=== PATIENT | female | born 1960 | race Caucasian/White ===

== ENCOUNTER 2017-01-27 09:43 | Outpatient (CLI) | payer OTHER ==
--- NOTE | 2017-02-12 10:31 | Mammography Report ---
DATE OF SERVICE: 01/27/2017 DIGITAL BILATERAL SCREENING MAMMOGRAM. CLINICAL INDICATION: A 56-year-old nulliparous patient for screening. COMPARISON: [facility], [place], dated 10/19/2015, 11/14/2014, . TECHNIQUE: Routine CC and MLO projections were obtained of the breasts. FINDINGS: The breasts demonstrate scattered fibroglandular densities bilaterally. There is a possible developing density in the left outer anterior subareolar breast. Further evaluation with spot compression views and possible ultrasound is recommended. Punctate, typically benign calcifications are present. No mammographically suspicious findings are appreciated in the right breast. IMPRESSION: Incomplete examination. RECOMMENDATIONS: Additional evaluation of the left breast as above. BIRADS category 0 - Incomplete. STANDARD QUALIFYING STATEMENTS 1. This examination was reviewed with the aid of Computed-Aided Detection (CAD) . 2. A negative or benign imaging report should not delay biopsy if clinically suspicious findings are present. Consider surgical consultation if warranted. More than 5% of cancers are not identified by imaging. 3. Dense breasts may obscure an underlying neoplasm. TD: 02/04/2017 18:39 FARHAT
== END 2017-01-27 09:44 | disposition home or self-care (01) ==
LOC: DI 09:43
PROVIDERS: ATTEND Family Medicine
DX: Z12.31 Encounter for screening mammogram for malignant neoplasm of breast (principal); R92.8 Other abnormal and inconclusive findings on diagnostic imaging of breast
CPT/HCPCS: 77067

== ENCOUNTER 2017-02-19 12:10 | Outpatient (CLI) | payer OTHER ==
--- NOTE | 2017-02-19 14:48 | Mammography Report ---
DATE OF SERVICE: 02/19/2017 DIGITAL DIAGNOSTIC LEFT MAMMOGRAM: 02/19/2017 CLINICAL INDICATION: Possible obscured nodule on screening exam. COMPARISON: 01/27/2017, 10/19/2015, 11/14/2014, 10/07/2013. TECHNIQUE: Left true lateral and spot compression views. FINDINGS: The left breast again demonstrates scattered fibroglandular densities. The questioned density in the left outer anterior breast dissipates on additional compression. No underlying mass lesion or architectural distortion is identified. IMPRESSION: NEGATIVE EXAMINATION. RECOMMENDATION: ROUTINE ANNUAL SCREENING UNLESS OTHERWISE CLINICALLY INDICATED. BIRADS CATEGORY 1 - NEGATIVE. STANDARD QUALIFYING STATEMENTS 1. This examination was reviewed with the aid of Computer-Aided Detection (CAD) . 2. A negative or benign imaging report should not delay biopsy if clinically suspicious findings are present. Consider surgical consultation if warranted. More than 5 % of cancers are not identified by imaging. 3. Dense breasts may obscure an underlying neoplasm. TD: 02/19/2017 15:20 FARHAT
== END 2017-02-19 12:11 | disposition home or self-care (01) ==
LOC: DI 12:10
PROVIDERS: ATTEND Family Medicine
DX: R92.8 Other abnormal and inconclusive findings on diagnostic imaging of breast (principal)

== ENCOUNTER 2017-05-05 09:39 | Outpatient (CLI) | payer OTHER | END 2017-05-05 09:40 | disposition home or self-care (01) | LOC: LAB 09:39 | PROVIDERS: ATTEND Family Medicine | DX: R30.0 Dysuria (principal) | CPT/HCPCS: 87086 ==

== ENCOUNTER 2017-05-15 18:02 | Emergency (ER) | payer OTHER ==
[2017-05-15] MEDS ORDERED: TETANUS/DIPHTHERIA/PERTUSSIS 0.5 ML SYRINGE IM ONE (18:58)
[2017-05-15] MEDS ORDERED: AMPICILLIN/SULBACTAM 3 GM in SODIUM CHLORIDE 0.9% MINIBAG 100 ML IV STA (18:58)
--- NOTE | 2017-05-15 18:59 | ED Physician Documentation ---
PD HPI UPPER EXT INJURY - Stated complaint Stated Complaint: CAT BITE - Chief complaint Chief Complaint: Wound - History obtained from History obtained from: Patient - History of Present Illness Location: Other (She was bitten by her own cat to the left hand last night and now has swelling of the hand and streaks up the forearm. No fevers. Tetanus is not completely clear, maybe 2007?) Review of Systems Constitutional: reports: Reviewed and negative Cardiac: reports: Reviewed and negative Respiratory: reports: Reviewed and negative PD PAST MEDICAL HISTORY - Present Medications Home Medications: Ambulatory Orders Medication Instructions Recorded Confirmed Amox/Clav 875/125 [Augmentin] 1 each PO Q12H #14 tablet 05/15/17 Aspirin Chewable [St Rob 05/15/17 Aspirin] Cholecalciferol (Vitamin D3) 05/15/17 [Vitamin D3] Echinacea Purpurea,Angustif Xt 05/15/17 [Echinacea Extract 125 mg Cap] - Allergies Allergies/Adverse Reactions: Allergies Allergy/AdvReac Type Severity Reaction Status Date / Time No Known Drug Allergies Allergy Verified 05/15/17 18:13 PD ED PE NORMAL - Vitals Vital signs reviewed: Yes - General General: Alert and oriented X 3, No acute distress - Extremities Extremities: Other (There are 2 infected puncture wounds on the left hand, one near the first metacarpal and one in the dorsal first webspace. There is a little bit of lymphangitic streaking near the antecubital fossa. She has good range of motion of the hand but with pain.) - Neuro Neuro: Alert and oriented X 3, Normal speech Results - Vitals Vitals: Vital Signs - 24 hr 05/15/17 05/15/17 18:09 19:49 Temperature 36.8 C 37.0 C Heart Rate 90 83 Respiratory 15 12 Rate Blood Pressure 133/78 H 112/60 O2 Saturation 99 100 Oxygen O2 Source Room air - Labs Labs: Microbiology 05/15/17 19:15 Wound Culture - Preliminary Hand - Left PD MEDICAL DECISION MAKING - ED course ED course: 57-year-old woman with a hand infection from a cat bite, was expressed and cultured during examination. She was administered IV Unasyn and close follow- up precautions. Departure - Departure Disposition: 01 Home, Self Care Clinical Impression: Animal bite with open wound Condition: Good Record reviewed to determine appropriate education?: Yes Instructions: ED Bite Animal General Prescriptions: Amox/Clav 875/125 [Augmentin] 1 each PO Q12H #14 tablet Comments: Return tomorrow if not improving or anytime if worsening or if running a fever. Recheck with your doctor Friday if better. Your blood pressure was elevated today on check into the emergency department. This does not mean that you have hypertension, it is a common phenomenon to come to the emergency department and have elevated blood pressure. I recommend that you see your primary care physician within the week to have it rechecked when you are feeling better. Discharge Date/Time: 05/15/17 20:01
[2017-05-15 19:49] VITALS: BP 112/60
== END 2017-05-15 20:01 | disposition home or self-care (01) ==
LOC: ED 18:02
DX: S61.452A Open bite of left hand, initial encounter (principal); W55.01XA Bitten by cat, initial encounter; R03.0 Elevated blood-pressure reading, without diagnosis of hypertension; Z23 Encounter for immunization; Z79.82 Long term (current) use of aspirin
CPT/HCPCS: 87070; 87077; 87205; 90471; 96374; 99283

== ENCOUNTER 2017-06-22 09:56 | Emergency (ER) | payer OTHER ==
[2017-06-22 10:08] VITALS: BP 137/91
--- NOTE | 2017-06-22 10:40 | ED Physician Documentation ---
PD HPI UPPER EXT INJURY - Stated complaint Stated Complaint: RT MIDDLE FINGER LAC - Chief complaint Chief Complaint: Laceration - History obtained from History obtained from: Patient, Family - History of Present Illness Location: Right, Finger (middle) Type of injury: Laceration Where injury occurred: Home Timing - onset: Today Timing - duration: Minutes Timing - details: Abrupt onset, Still present Improved by: Rest, Immobilization Worsened by: Moving, Palpating Associated symptoms: No: Weakness, Numbness, Tingling Similar symptoms before: Has not had sx before Recently seen: Emergency Dept - Additonal information Additional information: 57-year-old female was using a cuizinart when she started to hip of her finger into the machine and cut off the tip of the finger. This is gone through the nail and she has been able to control bleeding with direct pressure. Review of Systems Constitutional: denies: Fever Eyes: denies: Decreased vision Ears: denies: Ear pain Nose: denies: Congestion Respiratory: denies: Cough GI: denies: Nausea, Vomiting Skin: reports: Laceration (s) PD PAST MEDICAL HISTORY - Past Medical History Past Medical History: No - Past Surgical History Past Surgical History: No - Present Medications Home Medications: Ambulatory Orders Medication Instructions Recorded Confirmed Aspirin Chewable [St Rob 05/15/17 Aspirin] Cholecalciferol (Vitamin D3) 05/15/17 [Vitamin D3] Echinacea Purpurea,Angustif Xt 05/15/17 [Echinacea Extract 125 mg Cap] - Allergies Allergies/Adverse Reactions: Allergies Allergy/AdvReac Type Severity Reaction Status Date / Time No Known Drug Allergies Allergy Verified 06/22/17 10:08 - Social History Does the pt smoke?: No Smoking Status: Never smoker Does the pt drink ETOH?: Yes Does the pt have substance abuse?: No - Immunizations Immunizations are current?: No - POLST Patient has POLST: No PD ED PE NORMAL - Vitals Vital signs reviewed: Yes (hypertensive) - General General: Alert and oriented X 3, No acute distress, Well developed/nourished - HEENT HEENT: Atraumatic, PERRL - Respiratory Respiratory: No respiratory distress - Derm Derm: Normal color, Warm and dry, No rash - Extremities Extremities: No deformity, No edema, Other (There is a 1cm round skin avulsion of the right middle finger tip that involves about 25% of the nail. ) - Neuro Neuro: No motor deficit, No sensory deficit Eye Opening: Spontaneous Motor: Obeys Commands Verbal: Oriented GCS Score: 15 - Psych Psych: Normal mood, Normal affect Results - Vitals Vitals: Vital Signs - 24 hr 06/22/17 10:05 Temperature 36.1 C L Heart Rate 89 Respiratory 16 Rate Blood Pressure 137/91 H O2 Saturation 99 Oxygen O2 Source Room air PD MEDICAL DECISION MAKING - ED course Complexity details: considered differential, d/w patient, d/w family ED course: 57-year-old female with a skin avulsion of the tip of the right middle finger has been able to control the bleeding with direct pressure and she presents to the emergency department now for treatment. There is nothing to suture and Gelfoam and tube gauze dressing is placed. Departure - Departure Disposition: 01 Home, Self Care Clinical Impression: Avulsion of skin of finger Qualifiers: Encounter type: initial encounter Qualified Code(s): S61.209A - Unspecified open wound of unspecified finger without damage to nail, initial encounter Condition: Stable Instructions: ED Avulsion Dermal Follow-Up: Annette Fernandes MD [Primary Care Provider] -
== END 2017-06-22 10:58 | disposition home or self-care (01) ==
LOC: ED 09:56
DX: S61.312A Laceration without foreign body of right middle finger with damage to nail, initial encounter (principal); W29.0XXA Contact with powered kitchen appliance, initial encounter; Y93.G1 Activity, food preparation and clean up; Y92.009 Unspecified place in unspecified non-institutional (private) residence as the place of occurrence of the external cause; Z79.82 Long term (current) use of aspirin
CPT/HCPCS: 99282; 99283

== ENCOUNTER 2018-04-01 08:11 | Outpatient (CLI) | payer OTHER ==
--- NOTE | 2018-04-02 09:18 | Mammography Report ---
Reason: SCREENING MAMMO Procedure Date: 04/01/2018 Accession Number: [id number] / [id number] Procedure: RODRIGUE - Screening Mammo w/[facility] CPT Code: FULL RESULT: EXAM: Screening Mammo w/[facility] DATE: 04/01/2018 11:07 AM CLINICAL HISTORY: Screening encounter. History of nulliparity and early menses. Family history of breast cancer in a cousin at the age of 60. TECHNIQUE: Bilateral CC and MLO views were obtained. COMPARISON: 02/19/2017 through 10/07/2013. FINDINGS: The breasts demonstrate scattered fibroglandular densities bilaterally. Stable left breast intramammary nodules demonstrate features of fatty merna consistent with typically benign intramammary lymph nodes and show no significant interval change. No suspicious masses, clustered microcalcifications, or regions of architectural distortion are identified. IMPRESSION: Benign findings RECOMMENDATION: Routine annual screening unless otherwise clinically indicated. BIRADS CATEGORY 2: Benign findings STANDARD QUALIFYING STATEMENTS: 1. This examination was not reviewed with the aid of Computer-Aided Detection (CAD). 2. A negative or benign imaging report should not delay biopsy if clinically suspicious findings are present. Consider surgical consultation if warrented. More than 5% of cancers are not identified by imaging. 3. Dense breasts may obscure an underlying neoplasm. 4. This examination was reviewed with the aid of 3D breast imaging (tomosynthesis).
== END 2018-04-01 08:12 | disposition home or self-care (01) ==
LOC: DI 08:11
DX: Z12.31 Encounter for screening mammogram for malignant neoplasm of breast (principal); Z80.3 Family history of malignant neoplasm of breast
CPT/HCPCS: 77063; 77067

== ENCOUNTER 2018-07-06 15:43 | Outpatient (CLI) | payer OTHER | END 2018-07-06 15:44 | disposition short-term general hospital (02) | LOC: EMS 15:43 | PROVIDERS: ATTEND Surgery | DX: S06.9X9A Unspecified intracranial injury with loss of consciousness of unspecified duration, initial encounter (principal); S81.812A Laceration without foreign body, left lower leg, initial encounter; V29.50XA Motorcycle passenger injured in collision with unspecified motor vehicles in traffic accident, initial encounter; Y92.413 State road as the place of occurrence of the external cause | CPT/HCPCS: A0425; A0427 ==

== ENCOUNTER 2019-01-11 06:39 | Day surgery (SDC) | payer OTHER ==
[2019-01-11] MEDS ORDERED: MIDAZOLAM 2 MG/2 ML VIAL IVP ONE (06:40)
[2019-01-11] MEDS ORDERED: fentaNYL 250 MCG/5 ML VIAL IVP ONE (06:40)
[2019-01-11] MEDS ORDERED: LACTATED RINGERS 1,000 ML IV ONE (06:56)
[2019-01-11] MEDS ORDERED: ONDANSETRON 4 MG/2 ML VIAL ONE (09:10)
[2019-01-11 10:08] VITALS: BP 115/70
== END 2019-01-11 06:40 | disposition home or self-care (01) ==
LOC: SDS 06:39
PROVIDERS: ATTEND Internal Medicine Gastroenterology
PROC: 0DBP8ZZ Excision of Rectum, Via Natural or Artificial Opening Endoscopic (ICD-10-PCS; principal; 2019-01-11 08:15)
DX: Z12.11 Encounter for screening for malignant neoplasm of colon (principal); K62.1 Rectal polyp; K57.30 Diverticulosis of large intestine without perforation or abscess without bleeding
CPT/HCPCS: 45380; J7120

== ENCOUNTER 2019-05-11 10:34 | Outpatient (CLI) | payer OTHER ==
--- NOTE | 2019-05-12 01:16 | XRAY Report ---
Reason: CLOSED FRACTURE OF TIBIAL PLATEAU Procedure Date: 05/11/2019 Accession Number: [id number] / [id number] Procedure: XR - Tib/Fib LT CPT Code: Final Report FULL RESULT: EXAM: LEFT TIBIA/FIBULA RADIOGRAPHY EXAM DATE: 05/11/2019 10:49 AM. CLINICAL HISTORY: CLOSED FRACTURE OF TIBIAL PLATEAU. COMPARISON: None. TECHNIQUE: 2 views. FINDINGS: Bones: Proximal and distal tibial fractures with metal plates and screws. Proximal tibial fracture does not appear completely united. Intramedullary nail and screws seen in the distal femur. Healed fracture of the proximal fibula. Joints: No dislocation seen. Soft Tissues: Grossly unremarkable. IMPRESSION: 1. Fractures in the proximal and distal tibia with incomplete union of the proximal tibial fracture. 2. Healed fracture of the proximal fibula. 3. Intramedullary nail and distal interlocking screws seen in the femur. RADIA
--- NOTE | 2019-05-12 01:17 | XRAY Report ---
Reason: CLOSED FRACTURE OF TIBIAL PLATEAU Procedure Date: 05/11/2019 Accession Number: [id number] / [id number] Procedure: XR - Knee 2 View LT CPT Code: Final Report FULL RESULT: EXAM: LEFT KNEE RADIOGRAPHY EXAM DATE: 05/11/2019 10:49 AM. CLINICAL HISTORY: CLOSED FRACTURE OF TIBIAL PLATEAU. COMPARISON: None. TECHNIQUE: 2 views. FINDINGS: Bones: Proximal tibial fracture with metal plate and screws. The fracture does not appear completely united. Old healed fracture in the proximal fibula. Intramedullary nail and distal interlocking screws in the femur. Joints: No dislocation seen. No definite joint effusion. Soft Tissues: Grossly unremarkable. IMPRESSION: 1. Partially united fracture in the proximal tibia with metal plate and screws. 2. Healed fracture in the proximal fibula. 3. Intramedullary nail and distal interlocking screws in the femur. RADIA
--- NOTE | 2019-05-12 01:20 | XRAY Report ---
Reason: CLOSED FRACTURE OF TIBIAL PLATEAU Procedure Date: 05/11/2019 Accession Number: [id number] / [id number] Procedure: XR - Femur 2V LT CPT Code: Final Report FULL RESULT: EXAM: LEFT FEMUR RADIOGRAPHY EXAM DATE: 05/11/2019 10:49 AM. CLINICAL HISTORY: CLOSED FRACTURE OF TIBIAL PLATEAU. COMPARISON: None. TECHNIQUE: 2 views. FINDINGS: Bones: Intramedullary nail in the femur with proximal and distal interlocking screws. There are 2 additional cannulated screws in the femoral neck. Joints: No dislocation seen. No definite joint effusion identified. Soft Tissues: Grossly unremarkable. IMPRESSION: 1. Postoperative changes. No acute abnormality seen. RADIA
== END 2019-05-11 10:35 | disposition home or self-care (01) ==
LOC: DI 10:34
PROVIDERS: ATTEND Physician Assistant
DX: S82.142D Displaced bicondylar fracture of left tibia, subsequent encounter for closed fracture with routine healing (principal); S72.302D Unspecified fracture of shaft of left femur, subsequent encounter for closed fracture with routine healing; S82.302D Unspecified fracture of lower end of left tibia, subsequent encounter for closed fracture with routine healing

== ENCOUNTER 2019-06-03 12:50 | Outpatient (CLI) | payer OTHER ==
--- NOTE | 2019-06-04 07:41 | CT Report ---
Reason: TIBIA/FIBULA FRACTURE Procedure Date: 06/03/2019 Accession Number: [id number] / [id number] Procedure: CT - LOWER EXTREMITY WO - LT CPT Code: Final Report FULL RESULT: EXAM: LEFT KNEE CT WITHOUT CONTRAST EXAM DATE: 06/03/2019 01:05 PM. CLINICAL HISTORY: TIBIA/FIBULA FRACTURE. COMPARISON: 05/11/2019 left leg radiographs. TECHNIQUE: Thin-section axial images were acquired of the knee without contrast. Post-processing: Coronal and sagittal reformats. Other: None. In accordance with CT protocol optimization, one or more of the following dose reduction techniques were utilized for this exam: automated exposure control, adjustment of mA and/or KV based on patient size, or use of iterative reconstructive technique. FINDINGS: Bones: Postsurgical changes of open reduction and internal fixation of a Schatzker type tibial plateau fracture. There is marginal sclerosis without bridging ossification across the fracture of the metadiaphysis, as well as nonunion at the intra-articular component extending to the central articular surface of the lateral tibial plateau. Articular surface gap measures 8 mm in the coronal plane (series 6 image 82). A cephalomedullary nail with distal locking screws are also present in the distal femur. Hardware is intact. No acute fractures are identified. The oblique fracture of the proximal fibular diaphysis is healed. Joints: Mild medial and lateral compartment joint space loss with tiny marginal osteophytes. Small effusion. Musculature: Normal. No fatty atrophy. Other: No Bakers cyst. No soft tissue swelling. IMPRESSION: Sclerosis at the margins of the schatzker type tibial plateau fracture without bridging ossification, compatible with nonunion. Hardware is intact. 8 mm articular surface gap in the coronal plane at the lateral tibial plateau. RADIA
== END 2019-06-03 12:51 | disposition home or self-care (01) ==
LOC: DI 12:50
PROVIDERS: ATTEND Orthopaedic Surgery Orthopaedic Trauma
DX: S82.142K Displaced bicondylar fracture of left tibia, subsequent encounter for closed fracture with nonunion (principal)

== ENCOUNTER 2019-11-05 15:16 | Outpatient (CLI) | payer OTHER ==
--- NOTE | 2019-11-08 13:39 | Mammography Report ---
BILATERAL DIGITAL SCREENING MAMMOGRAM 3D/2D: 11/05/2019 CLINICAL: Routine screening. Comparison is made to exams dated: 04/01/2018 mammogram, 01/27/2017 mammogram, 02/19/2017 mammogram - [facility], and 10/19/2015 mammogram - [facility]. There are scattered fibrogl andular elements in both breasts. No significant masses, calcifications, or other findings are seen in either breast. There has been no significant interval change. IMPRESSION: NEGATIVE There is no mammographic evidence of malignancy. A 1 year screening mammogram is recommended. This exam was interpreted at Station ID: [id number]. NOTE: For mammograms, a report in lay terms will be sent to the patient. Approximately 15% of breast malignancies will not be visualized mammographically. In the management of a palpable breast mass, a negative mammogram must not discourage biopsy of a clinically suspicious lesion. Electronically Signed By: Travis Castillo M.D. ar/penrad:11/05/2019 17:22:44 ACR BI-RADS Category 1: Negative 3341F PARENCHYMAL PATTERN: (A) - The breast(s) demonstrate(s) scattered fibroglandular densities. BI-RADS CATEGORY: (1) - 1 RECOMMENDATION: (ANNUAL) - Recommend routine annual screening mammography. [id number] 1 year screening LATERALITY: (B)
== END 2019-11-05 15:17 | disposition home or self-care (01) ==
LOC: DI 15:16
DX: Z12.31 Encounter for screening mammogram for malignant neoplasm of breast (principal)
CPT/HCPCS: 77063; 77067

== ENCOUNTER 2020-05-22 15:18 | Outpatient (CLI) | payer OTHER ==
--- NOTE | 2020-05-22 16:34 | CT Report ---
PROCEDURE: CHEST WO INDICATIONS: PULMONARY NODULE TECHNIQUE: Noncontrast 5 mm thick sections acquired from the pulmonary apices to the posterior costophrenic angl es. 7 mm thick coronal and sagittal MIP reformats were then acquired. For radiation dose reduction, the following was used: automated exposure control, adjustment of mA and/or kV according to patient size. COMPARISON: None FINDINGS: Image quality: Excellent. Lungs and pleura: No acute air space opacities. 10 mm nodule within the right middle lobe lateral s egment anteriorly (series 4 image 195). There is a 5 mm subpleural nodule within the right costophren ic angle posteriorly (series 4 image 240). There is a subpleural 5 mm nodule within the right postero lateral costophrenic angle (series 4 image 229). 2 mm subpleural nodule within the right upper lobe a nteriorly (series 4 image 86). Mild linear scarring within the lateral lingula. 3 mm subpleural nodul e within the left upper lobe posteriorly (series 4 image 85). 6 mm subpleural nodule within the left lower lobe posterolaterally (series 4 image 163). 5 mm subpleural nodule within the left lower lobe p osterolaterally (series 4 image 195). 3 mm subpleural nodule within the left lower lobe posteriorly ( series 4 image 212). 4 mm nodule within the left posterior costophrenic angle (series 4 image 256) di sease. Left lateral costophrenic angle nodule measuring 5 mm (series 4 image 258). No pleural effusio ns or pneumothorax. Central and peripheral airways are patent and normal in caliber. Mediastinum: Heart size is normal. No pericardial effusion. No mediastinal adenopathy by size crit eria. Thoracic aorta and central pulmonary arteries are normal in size. Esophagus is normal in berenice thor. Small hiatal hernia. Bones and chest wall: No suspicious bony lesions. No vertebral body compression fractures. No axil josé miguel or supraclavicular adenopathy by size criteria. The thyroid is normal in size. Abdomen: Visualized upper abdominal solid organs and bowel loops appear normal in the absence of con trast. IMPRESSION: 1. Bilateral pulmonary nodules, largest of which is in the right middle lobe. Follow-up is recommende d as below. Solid nodules Multiple nodules size: <6 mm * low risk patients: no routine follow-up * high risk patients: optional CT at 12 months Multiple nodules size: 6-8 mm * low risk patients: follow-up at 3-6 months, then consider further follow-up at 18-24 months * high risk patients: follow-up at 3-6 months, then at 18-24 months if no change Reviewed by: Sami Gomez MD on 05/22/2020 4:32 PM PDT Approved by: Sami Gomez MD on 05/22/2020 4:32 PM PDT Station ID: [id number]
== END 2020-05-22 15:19 | disposition home or self-care (01) ==
LOC: DI 15:18
PROVIDERS: ATTEND Family Medicine
DX: R91.8 Other nonspecific abnormal finding of lung field (principal)

== ENCOUNTER 2020-05-22 15:23 | Outpatient (CLI) | payer OTHER ==
--- NOTE | 2020-05-22 16:53 | Ultrasound Report ---
PROCEDURE: Head or Neck Soft Tissue INDICATIONS: THYROID NODULE TECHNIQUE: Real-time scanning was performed of the thyroid gland, with image documentation. COMPARISON: CT 07/06/2018, CT chest 05/22/2020 FINDINGS: Right: Thyroid lobe measures 4.9 x 1.7 x 1.7 cm, and is homogeneous in echotexture. Left: Thyroid lobe measures 5.7 x 1.3 x 1.3 cm, and is homogenous in echotexture. Isthmus: Size mm thick. Nodule number: One Location: Right medial Size: 1.2 x 0.8 x 1.2 cm. Composition: Solid Echogenicity: Hypoechoic Shape: wider than tall. Margins: Smooth Echogenic foci: None Total points: 4 ACR TI-RADS category: 4 Nodule number: Two Location: Left Size: 2.0 x 1.4 x 1.6 cm. Composition: Solid Echogenicity: Hypoechoic Shape: wider than tall. Margins: Smooth Echogenic foci: Size Total points: 4 ACR TI-RADS category: 4 In addition, there is a nonspecific focus of calcification without associated mass in the right thyro id lobe. IMPRESSION: 1. Lesion 1 is considered category 4. Secondary to size, follow-up imaging at 1, 2, 3 and 5 years is recommended. 2. Lesion 2 is considered category 4. Secondary to size, fine-needle aspiration is recommended. 3. Nonspecific calcification without associated mass in the right thyroid lobe. Attention to this reg ion on follow-up exams is recommended. ACR TI-RADS definitions and recommendations: TI-RADS 1 (benign): 0 points. FNA not needed. TI-RADS 2 (not suspicious): 2 points. FNA not needed. TI-RADS 3 (mildly suspicious): 3 points. ? FNA if 2.5 cm or larger, follow up if 1.5 cm or larger (at 1, 3, and 5 years). TI-RADS 4 (moderately suspicious): 4-6 points. ? FNA if 1.5 cm or larger, follow up if 1 cm or larger (at 1, 2, 3, and 5 years). TI-RADS 5 (highly suspicious): 7 points or more. ? FNA if 1 cm or larger, follow up if 0.5 cm or larger (every year for 5 years). Reviewed by: Ann Bean MD on 05/22/2020 4:51 PM PDT Approved by: Ann Bean MD on 05/22/2020 4:51 PM PDT Station ID: [id number]
== END 2020-05-22 15:24 | disposition home or self-care (01) ==
LOC: DI 15:23
PROVIDERS: ATTEND Family Medicine
DX: E04.2 Nontoxic multinodular goiter (principal); E07.89 Other specified disorders of thyroid; R91.8 Other nonspecific abnormal finding of lung field

== ENCOUNTER 2020-07-12 13:40 | Outpatient (CLI) | payer OTHER ==
[~2020-07-12 13:40] MED LIST: BUFFERED LIDOCAINE 10 ML SYRINGE ONE
[2020-07-12] MEDS: BUFFERED LIDOCAINE 10 ML SYRINGE IU ONE (15:23)
--- NOTE | 2020-07-12 15:30 | Ultrasound Report ---
PROCEDURE: FNA Bx w/US Gnd 1st les INDICATIONS: THYROID NODULE TECHNIQUE: The indications, alternatives, benefits, risks, and complications of the procedure were explained to the patient. Written informed consent was obtained and placed in the chart. The area of interest wa s examined sonographically and a site was chosen for ultrasound guided percutaneous sampling. The sk in was prepared and draped in the usual fashion, and anesthetized with 1% lidocaine infiltrated from the skin down to the lesion. Multiple passes were then performed, with contents emptied into an appr [facility] pathology specimen container. A bandage was applied to the area of access at completion of t he study. COMPARISON: Thyroid Ultrasound 05/22/2020. FINDINGS: Location of lesion sampled: Left lower [place]: 25 gauge hypodermic needles. Number of passes: 6 Medications: 1% lidocaine for local anaesthesia. Complications: None. IMPRESSION: Successful ultrasound-guided fine needle aspiration, with cytology results pending. Reviewed by: Travis Castillo MD on 07/12/2020 3:29 PM PDT Approved by: Travis Castillo MD on 07/12/2020 3:29 PM PDT Station ID: [id number]
== END 2020-07-12 13:41 | disposition home or self-care (01) ==
LOC: DI 13:40
PROVIDERS: ATTEND Otolaryngology
DX: E04.1 Nontoxic single thyroid nodule (principal)
CPT/HCPCS: 10005

== ENCOUNTER 2020-08-16 12:42 | Outpatient (CLI) | payer OTHER ==
[2020-08-16] MEDS ORDERED: BUFFERED LIDOCAINE 10 ML SYRINGE IU ONE (15:21)
--- NOTE | 2020-08-16 16:48 | Ultrasound Report ---
PROCEDURE: FNA Bx w/US Gnd 1st les INDICATIONS: THYROID NODULE TECHNIQUE: The indications, alternatives, benefits, risks, and complications of the procedure were explained to the patient. Written informed consent was obtained and placed in the chart. The area of interest wa s examined sonographically and a site was chosen for ultrasound guided percutaneous sampling. The sk in was prepared and draped in the usual fashion, and anesthetized with 1% lidocaine infiltrated from the skin down to the lesion. Multiple passes were then performed, with contents [facility]. A bandage was applied to the area of access at completion of t he study. COMPARISON: Prior thyroid ultrasound and biopsy procedure.. FINDINGS: Location(s) of lesion(s) sampled: Left middle third thyroid nodule, measuring approximately 1.4 x 1. 5 x 2.0 cm. [place]: 25 gauge hypodermic needles. Number of passes: 6, one of which was performed with aspiration technique Medications: 1% lidocaine for local anaesthesia. Complications: None. IMPRESSION: Successful ultrasound-guided left thyroid nodule fine needle aspiration, with cytology results pendin g. The initial prior fine-needle aspiration attempts did not yield sufficient biopsy products. If th is attempt also consideration of surgical excision may be warranted. Reviewed by: Lionel Rdz MD on 08/16/2020 4:47 PM PDT Approved by: Lionel Rdz MD on 08/16/2020 4:47 PM PDT Station ID: [id number]
== END 2020-08-16 12:43 | disposition home or self-care (01) ==
LOC: DI 12:42
PROVIDERS: ATTEND Otolaryngology
DX: E04.1 Nontoxic single thyroid nodule (principal)
CPT/HCPCS: 10005

== ENCOUNTER 2020-12-21 14:31 | Outpatient (CLI) | payer OTHER ==
--- NOTE | 2020-12-22 08:26 | Mammography Report ---
BILATERAL DIGITAL SCREENING MAMMOGRAM 3D/2D: 12/21/2020 CLINICAL: Routine screening. Comparison is made to exams dated: 11/05/2019 mammogram, 04/01/2018 mammogram, 02/19/2017 mammogram, mammogram - [facility], and 10/19/2015 mammogram - [facility]. There are scattered fibroglandular elements in both breasts. No significant masses, calcifications, or other findings are seen in either breast. There has been no significant interval change. IMPRESSION: NEGATIVE There is no mammographic evidence of malignancy. A 1 year screening mammogram is recommended. This exam was interpreted at Station ID: [id number]. NOTE: For mammograms, a report in lay terms will be sent to the patient. Approximately 15% of breast malignancies will not be visualized mammographically. In the management of a palpable breast mass, a negative mammogram must not discourage biopsy of a clinically suspicious lesion. Electronically Signed By: Gurpreet Kennedy M.D., jr/santiago:12/21/2020 15:52:52 ACR BI-RADS Category 1: Negative 3341F PARENCHYMAL PATTERN: (A) - The breast(s) demonstrate(s) scattered fibroglandular densities. BI-RADS CATEGORY: (1) - 1 RECOMMENDATION: (ANNUAL) - Recommend routine annual screening mammography. [id number] 1 year screening LATERALITY: (B)
== END 2020-12-21 14:32 | disposition home or self-care (01) ==
LOC: DI 14:31
DX: Z12.31 Encounter for screening mammogram for malignant neoplasm of breast (principal)

== ENCOUNTER 2021-06-12 14:42 | Outpatient (CLI) | payer OTHER ==
[2021-06-12] MEDS ORDERED: IOPAMIDOL-300 100 ML VIAL ONE (16:10)
[2021-06-12] MEDS ORDERED: IOPAMIDOL-300 100 ML VIAL IVP ONE (16:25)
--- NOTE | 2021-06-12 17:12 | CT Report ---
PROCEDURE: CHEST W INDICATIONS: LUNG NODULE CONTRAST: IV CONTRAST: Isovue 300 ml: 100 PO CONTRAST: *NO PO CONTRAST TECHNIQUE: After the administration of intravenous contrast, 1 mm axial images were acquired from the pulmonary apices through the posterior costophrenic angles. Axial 5 mm soft tissue kernel reconstructions were performed as well as 8 mm axial MIP and coronal and sagittal 5 mm reformations. For radiation dose reduction, the following was used: automated exposure control, adjustment of mA and/or kV according to patient size. COMPARISON: None. FINDINGS: Image quality: Excellent. Lungs and pleura: No acute air space opacities. No pleural effusions or pneumothorax. Central and peripheral airways are patent and normal in caliber. The 7 mm in diameter right middle lobe pulmonary nodule is unchanged when compared with the CT dated 07/06/2018 (series 4/195). The 4 mm pulmonary nodule at the posterior right lung base is unchanged (se rigo 4/image 227). The 4 mm lateral left lower lobe pulmonary nodule is unchanged (series 4/image 152 ) a 4 mm pulmonary nodules slightly more inferior within the left lower lobe is also unchanged (serie s 4/image 186). No new pulmonary nodules. Mediastinum: Heart size is normal. No pericardial effusion. No mediastinal or hilar adenopathy by size criteria. Thoracic aorta and central pulmonary arteries are normal in size. Esophagus is analy l in caliber. No hiatal hernia. Bones and chest wall: No suspicious bony lesions. No vertebral body compression fractures. No axil josé miguel or supraclavicular adenopathy by size criteria. The thyroid is normal in size and there are no incidental findings.. Abdomen: Visualized upper abdominal solid organs appear normal. Upper abdominal bowel loops are nor mal in caliber. IMPRESSION: Multiple pulmonary nodules measuring up to 7 mm in diameter which are unchanged when compared with e CT dated 07/06/2018. Further follow-up recommended. Reviewed by: Beatriz Culp MD on 06/12/2021 5:11 PM PDT Approved by: Beatriz Culp MD on 06/12/2021 5:11 PM PDT Station ID: [id number]
== END 2021-06-12 14:43 | disposition home or self-care (01) ==
LOC: LAB 14:42
PROVIDERS: ATTEND Family Medicine
DX: R91.1 Solitary pulmonary nodule (principal); R91.8 Other nonspecific abnormal finding of lung field
CPT/HCPCS: 36415; 71260; 82565; Q9967

== ENCOUNTER 2022-07-06 12:14 | Emergency (ER) | payer OTHER ==
[2022-07-06 12:24] VITALS: BP 124/82
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
== END 2022-07-06 13:02 | disposition home or self-care (01) ==
LOC: ED 12:14
DX: F43.29 Adjustment disorder with other symptoms (principal)
CPT/HCPCS: 99281; 99283

== ENCOUNTER 2023-09-17 07:46 | Outpatient (CLI) | payer OTHER ==
[2023-09-17 07:57] LABS: BASOPHILS % (AUTO) 0.5 %; EOSINOPHILS # (AUTO) 0.1 10^3/uL (0.0-0.7); EOSINOPHILS % (AUTO) 1.8 %; HGB - HEMOGLOBIN 13.1 g/dL (12.0-16.0); LYMPHOCYTES # (AUTO) 1.9 10^3/uL (1.5-3.5); LYMPHOCYTES % (AUTO) 33.2 %; MEAN CORPUSCULAR HEMOGLOBIN 29.4 pg (27.0-31.0); MEAN CORPUSCULAR HGB CONC 32.8 g/dL (32.0-36.0); MEAN CORPUSCULAR VOLUME 89.7 fL (81.0-99.0); MEAN PLATELET VOLUME 8.9 fL (7.9-10.8); MONOCYTES # (AUTO) 0.6 10^3/uL (0.0-1.0); MONOCYTES % (AUTO) 9.8 %; NEUTROPHILS # (AUTO) 3.1 10^3/uL (1.5-6.6); NEUTROPHILS % (AUTO) 54.5 %; PLT - PLATELET COUNT 284 10^3/uL (130-450); RED BLOOD COUNT 4.46 10^6/uL (4.20-5.40); RED CELL DISTRIBUTION WIDTH 12.4 % (12.0-15.0); WHITE BLOOD COUNT 5.6 x10^3/uL (4.8-10.8)
[2023-09-17 08:18] LABS: ALBUMIN 4.6 g/dL (3.2-5.5); ALBUMIN/GLOBULIN RATIO 1.6 (1.0-2.2); ALKALINE PHOSPHATASE 83 IU/L (42-121); ALT ALANINE AMINOTRANSFERASE 24 IU/L (10-60); AST ASPARTATE AMINOTRANSFERASE 27 IU/L (10-42); BILIRUBIN,TOTAL 0.6 mg/dL (0.2-1.0); BUN - BLOOD UREA NITROGEN 15 mg/dL (6-20); CALCIUM 10.1 mg/dL (8.5-10.3); CARBON DIOXIDE - CO2 30 mmol/L (21-32); CHLORIDE 103 mmol/L (101-111); CHOL/HDL RATIO 4.3 (<4.4); CHOLESTEROL 294 mg/dL; GFR - MDRD 56 (>89); GLUCOSE 102 mg/dL (74-104); HDL CHOLESTEROL 68 mg/dL; LDL CHOLESTEROL,CALCULATED 211 mg/dL; LDL/HDL RATIO 3.1 (<4.4); POTASSIUM 4.3 mmol/L (3.5-4.5); SODIUM 139 mmol/L (135-145); TOTAL PROTEIN 7.4 g/dL (6.4-8.9); TRIGLYCERIDES 76 mg/dL; VLDL CHOLESTEROL 15 mg/dL
[2023-09-17 08:28] LABS: THYROID STIMULATING HORMONE 2.45 uIU/mL (0.34-5.60)
== END 2023-09-17 07:47 | disposition home or self-care (01) ==
LOC: LAB 07:46
PROVIDERS: ATTEND Physician Assistant
DX: Z00.00 Encounter for general adult medical examination without abnormal findings (principal); E78.5 Hyperlipidemia, unspecified; E06.3 Autoimmune thyroiditis
CPT/HCPCS: 36415; 80053; 80061; 83721; 84443; 85025

== ENCOUNTER 2023-10-03 14:47 | Outpatient (CLI) | payer OTHER ==
--- NOTE | 2023-10-06 08:50 | Mammography Report ---
BILATERAL DIGITAL SCREENING MAMMOGRAM 3D/2D: 10/03/2023 CLINICAL: Routine screening. Comparison is made to exams dated: 12/21/2020 mammogram, 11/05/2019 mammogram, 04/01/2018 mammogram, mammogram, 01/27/2017 mammogram - [facility], and 10/19/2015 mammogram - [facility]. There are scattered areas of fibroglandular density in both breasts (category b / 25%-50% glandular t issue). No significant masses, calcifications, or other findings are seen in either breast. There has been no significant interval change. IMPRESSION: NEGATIVE There is no mammographic evidence of malignancy. A 1 year screening mammogram is recommended. Based on the Tyrer Cuzick model (a risk assessment model) the patient's lifetime risk is 13.3% and he r 10 year risk is 6.1%. According to the ACR, ACS, and NCCN guidelines, an annual breast MRI exam barbara ng with mammogram is recommended if the patient's lifetime risk is 20% or greater. This exam was interpreted at Station ID: [id number]. NOTE: For mammograms, a report in lay terms will be sent to the patient. Approximately 15% of breast malignancies will not be visualized mammographically. In the management of a palpable breast mass, a negative mammogram must not discourage biopsy of a clinically suspicious lesion. Electronically Signed By: Francisco galvez/santiago:10/03/2023 15:51:58 letter sent: No_Letter ACR BI-RADS Category 1: Negative 3341F PARENCHYMAL PATTERN: (A) - The breast(s) demonstrate(s) scattered fibroglandular densities. BI-RADS CATEGORY: (1) - 1 RECOMMENDATION: (ANNUAL) - Recommend routine annual screening mammography. [id number] 1 year screening LATERALITY: (B)
== END 2023-10-03 14:48 | disposition home or self-care (01) ==
LOC: DI 14:47
DX: Z12.31 Encounter for screening mammogram for malignant neoplasm of breast (principal); R92.323 Mammographic fibroglandular density, bilateral breasts